=== PATIENT | male | born 1970 | race Caucasian/White ===

== ENCOUNTER 2017-03-19 06:27 | Emergency (ER) | payer OTHER ==
[~2017-03-19] VITALS: Ht 144.8 cm; Wt 49.9 kg
[~2017-03-19 06:27] MED LIST: DOES NOT KNOW MEDS; TOBREX5 ML OP
[2017-03-19 07:00] LABS: HEMATOCRIT 44.3 % (42.0-52.0); HEMOGLOBIN 14.9 gm/dL (14.0-18.0); MCH 31.2 pg (26.0-34.0); MCHC 33.6 g/dL (28.0-37.0); MCV 92.8 fL (80.0-100.0); PLATELET COUNT 204 thou/uL (150-400); RBC 4.77 mil/uL (4.50-6.00); RDW 14.5 % (10.5-14.5); WBC 19.2 thou/uL (4.0-11.0)
[2017-03-19 07:02] LABS: MANUAL DIFF YES
[2017-03-19 07:08] LABS: CALCIUM 8.7 mg/dL (8.5-10.1); CREATININE 1.2 mg/dL (0.7-1.3); POTASSIUM 4.1 mmol/L (3.5-5.1)
[2017-03-19 07:22] LABS: ALBUMIN 3.2 g/dL (3.4-5.0); DIRECT BILIRUBIN 0.1 mg/dL (<0.1-0.3); TOTAL BILIRUBIN 0.8 mg/dL (<0.1-1.0); TOTAL PROTEIN 7.6 g/dL (6.4-8.2)
[2017-03-19] MEDS ORDERED: ZOFRAN ODT4 MG PO (07:27)
[2017-03-19] MEDS ORDERED: VITAMIN A & D60 G1 TP (07:41)
[2017-03-19] MEDS ORDERED: KETOCONAZOLE10 GM MC (07:41)
[2017-03-19] MEDS ORDERED: PATADAY2.5 ML OP (07:42)
[2017-03-19] MEDS ORDERED: ZANTAC 150MG T150 MG PO (07:43)
[2017-03-19] MEDS ORDERED: CLOBETASOL EMOL15 GM TP (07:43)
[2017-03-19] MEDS ORDERED: KEPPRA 500 MG500 M1 PO (07:43)
[2017-03-19] MEDS ORDERED: ADULT TUSS100 MG/5 M PO (07:44)
[2017-03-19] MEDS ORDERED: PERIDEX15 ML MM (07:45)
[2017-03-19] MEDS ORDERED: CLARITIN10 MG PO (07:45)
[2017-03-19] MEDS ORDERED: TESSALON PERLE100 MG PO (07:45)
[2017-03-19] MEDS ORDERED: ALCLOMETASONE D15 GM TP (07:45)
[2017-03-19] MEDS ORDERED: SELENIUM SULFI120 M1 TP (07:47)
[2017-03-19] MEDS ORDERED: TYLENOL325 MG PO (07:47)
[2017-03-19] MEDS ORDERED: CLONAZEPAM 0.50.5 M1 PO (07:48)
[2017-03-19] MEDS ORDERED: ALPRAZOLAM ER1 MG PO (07:48)
[2017-03-19 07:52] LABS: ABSOLUTE NEUTROPHILS 18.8 thou/uL (1.4-8.2); TOTAL CELL COUNT 100
[2017-03-19 07:53] LABS: ANISOCYTOSIS 1+
[2017-03-19 08:55] VITALS: BP 115/70
== END 2017-03-19 08:55 | disposition home or self-care (01) ==
LOC: ER 06:27
PROVIDERS: Emergency Medicine
DX: R56.9 Unspecified convulsions (principal); R11.2 Nausea with vomiting, unspecified; Q90.9 Down syndrome, unspecified; Z88.1 Allergy status to other antibiotic agents; Z88.4 Allergy status to anesthetic agent